=== PATIENT | female | born 1950 | race Caucasian/White ===

== ENCOUNTER 2016-07-09 14:39 | Emergency (ER) | payer MEDICAID ==
[~2016-07-09] VITALS: Ht 157.4 cm; Wt 81.6 kg
[~2016-07-09 14:39] MED LIST changes: -ATORVASTATIN CA40 M1 PO; -AVPAK AZITHROM250 M1 PO; -CYCLOBENZAPRINE10 MG PO; -PREDNISONE10 MG PO
[2016-07-09] MEDS ORDERED: ATORVASTATIN CA40 M1 PO (14:49)
[2016-07-09 15:29] LABS: BASO % 0.3 % (0.0-1.0); EOS # 0.4 10*3/uL (0.0-0.4); EOS % 5.4 % (1.0-4.0); HEMATOCRIT 41.9 % (37.0-47.0); HEMOGLOBIN 13.8 g/dl (12.0-16.0); LYMPH # 2.1 10*3/uL (1.3-4.4); LYMPH % 28.6 % (27.0-41.0); MEAN CELL VOLUME 93.3 fl (81.0-99.0); MEAN CORPUSCULAR HGB 30.7 pg (27.0-31.0); MEAN CORPUSCULAR HGB CONC 32.9 g/dl (33.0-37.0); MEAN PLATELET VOLUME 10.9 fl (9.6-12.3); MONO # 0.4 10*3/uL (0.1-1.0); MONO % 5.4 % (3.0-9.0); NEUT # 4.3 10*3/uL (2.3-7.9); PLATELET COUNT AUTOMATED 181 10*3/uL (130-400); RED BLOOD COUNT 4.49 10*6/uL (4.10-5.10); WHITE BLOOD COUNT 7.2 10*3/uL (4.8-10.8)
[2016-07-09 15:46] LABS: ALKALINE PHOSPHATASE 84 U/L (45-117); BILIRUBIN, TOTAL 0.4 mg/dl (0.2-1.0); BUN 12 mg/dl (7-24); CARBON DIOXIDE 28 mmol/L (21-32); CHLORIDE 102 mmol/L (98-107); EST GLOM FILT AFRICAN AMERICAN > 60 ml/min; GLUCOSE 90 mg/dL (65-99); SGOT/AST 20 IU/L (3-35); SGPT/ALT 24 U/L (12-78); SODIUM 139 mmol/L (136-145); TOTAL PROTEIN 7.4 gm/dL (6.4-8.2)
[2016-07-09 16:16] VITALS: BP 122/65
[2016-07-09] MEDS ORDERED: AVPAK AZITHROM250 M1 PO (16:33)
[2016-07-09] MEDS ORDERED: PREDNISONE10 MG PO (16:33)
[2016-07-09] MEDS ORDERED: CYCLOBENZAPRINE10 MG PO (16:33)
== END 2016-07-09 16:40 | disposition home or self-care (01) ==
LOC: ED 14:39
PROVIDERS: Registered Nurse
DX: S22.9XXA Fracture of bony thorax, part unspecified, initial encounter for closed fracture (principal); J20.9 Acute bronchitis, unspecified; J45.909 Unspecified asthma, uncomplicated; Z88.0 Allergy status to penicillin; Z79.899 Other long term (current) drug therapy; X58.XXXA Exposure to other specified factors, initial encounter; Y93.9 Activity, unspecified; Y92.9 Unspecified place or not applicable; Y99.9 Unspecified external cause status

== ENCOUNTER → 2016-07-09 | Outpatient (CLI) | payer MEDICAID ==
[~2016-07-09] MED LIST: ATORVASTATIN CA40 M1 PO; AVPAK AZITHROM250 M1 PO; CYCLOBENZAPRINE10 MG PO; FLEXERIL10 MG PO; LEVOFLOXACIN500 MG PO; LISINOPRIL/HCTZ1 TA3 PO; LISINOPRIL/HCTZ1 TAB PO; MELOXICAM15 MG PO; MOTRIN800 MG PO; PREDNICOT20 MG PO; PREDNISONE10 MG PO; PREDNISONE20 M1 PO; PROZAC20 MG PO; ROBITUSSIN AC 110 ML PO; SEPTRA DS 800 M1 TAB PO; TRAMADOL HCL50 MG PO; VENTOLIN H0.09 MG/AC INH; VICODIN 5/500 505 MG PO; VICODIN ES 7501 TAB PO; ZITHROMAX Z PA250 MG PO
== END | disposition home or self-care (01) ==
LOC: MAMMO 02:19
DX: Z12.31 Encounter for screening mammogram for malignant neoplasm of breast (principal)

== ENCOUNTER 2016-11-01 05:53 | Inpatient (IN) | payer MEDICAID ==
[2016-11-01] VITALS (10 sets, daily range): BP systolic 105–182; BP diastolic 6–90
[~2016-11-01] VITALS: Ht 160 cm; Wt 85.5 kg
--- NOTE | ~2016-11-01 | EKG ---
[place], [place] ELECTROCARDIOGRAM REPORT NAME: CHRIS VELASQUEZ UNIT #: [id number] ROOM: 403 DOCTOR: AUSTIN HANSEN MD BIRTHDATE: [birth year] DOS: 11/01/2016 TIME: 0609 FINDINGS: 1. Sinus tachycardia. 2. Otherwise, normal. AUSTIN HANSEN MD CM:EKGRPT:ELECTROCARDIOGRAM REPORT [id number] AUSTIN HANSEN MD
[~2016-11-01 05:53] MED LIST changes: +ATORVASTATIN CA40 M1 PO; +AVPAK AZITHROM250 M1 PO; +CYCLOBENZAPRINE10 MG PO; +PREDNISONE10 MG PO
[2016-11-01] MEDS ORDERED: VITAMIN D-32000 UNI1 PO (06:04)
[2016-11-01] MEDS ORDERED: LIPITOR40 MG PO (06:05)
[2016-11-01 06:32] LABS: BASO % 0.3 % (0.0-1.0); EOS # 0.5 10*3/uL (0.0-0.4); EOS % 6.1 % (1.0-4.0); HEMATOCRIT 42.7 % (37.0-47.0); HEMOGLOBIN 14.4 g/dl (12.0-16.0); LYMPH # 1.2 10*3/uL (1.3-4.4); LYMPH % 13.5 % (27.0-41.0); MEAN CELL VOLUME 92.2 fl (81.0-99.0); MEAN CORPUSCULAR HGB 31.1 pg (27.0-31.0); MEAN CORPUSCULAR HGB CONC 33.7 g/dl (33.0-37.0); MEAN PLATELET VOLUME 10.8 fl (9.6-12.3); MONO # 0.4 10*3/uL (0.1-1.0); MONO % 4.9 % (3.0-9.0); NEUT # 6.7 10*3/uL (2.3-7.9); NEUT % 74.9 % (47.0-73.0); PLATELET COUNT AUTOMATED 179 10*3/uL (130-400); RED BLOOD COUNT 4.63 10*6/uL (4.10-5.10); RED CELL DISTRI WIDTH 12.8 % (0-14.5); WHITE BLOOD COUNT 8.9 10*3/uL (4.8-10.8)
[2016-11-01 06:50] LABS: ALBUMIN 4.1 gm/dl (3.1-4.5); ALKALINE PHOSPHATASE 93 U/L (45-117); BILIRUBIN, TOTAL 0.5 mg/dl (0.2-1.0); BUN 8 mg/dl (7-24); CARBON DIOXIDE 27 mmol/L (21-32); CHLORIDE 106 mmol/L (98-107); EST GLOM FILT AFRICAN AMERICAN > 60 ml/min; GLUCOSE 106 mg/dL (65-99); POTASSIUM 3.5 mmol/L (3.5-5.1); SGOT/AST 17 IU/L (3-35); SGPT/ALT 22 U/L (12-78); SODIUM 141 mmol/L (136-145); TOTAL PROTEIN 7.5 gm/dL (6.4-8.2)
[2016-11-01 06:53] LABS: TROPONIN I < 0.015 ng/ml (<0.045)
[2016-11-01 08:28] LABS: LA>2 REFLEX 2 HR DRAW NOW
[2016-11-01 09:04] LABS: LA>2 RFLX FOLLOW UP AT 2 HRS 4.1 mmol/L (0.4-2.0)
[2016-11-01 10:42] LABS: LA>2 REFLEX 4 HR DRAW NOW
[2016-11-01 15:52] LABS: LA>2 REFLEX 2 HR DRAW NOW
[2016-11-01 16:22] LABS: LA>2 RFLX FOLLOW UP AT 2 HRS 4.7 mmol/L (0.4-2.0)
[2016-11-01 18:08] LABS: LA>2 REFLEX 4 HR DRAW NOW
[2016-11-02] VITALS: BP 117/64
[2016-11-02 06:58] LABS: BASO % 0.1 % (0.0-1.0); IG # 0.1 10*3/uL (0.0-0.1); LYMPH # 0.7 10*3/uL (1.3-4.4); LYMPH % 6.5 % (27.0-41.0); MEAN CELL VOLUME 94.8 fl (81.0-99.0); MEAN CORPUSCULAR HGB CONC 32.7 g/dl (33.0-37.0); MONO # 0.4 10*3/uL (0.1-1.0); MONO % 3.8 % (3.0-9.0); NEUT # 9.2 10*3/uL (2.3-7.9); NEUT % 89.1 % (47.0-73.0); PLATELET COUNT AUTOMATED 170 10*3/uL (130-400); RED BLOOD COUNT 3.81 10*6/uL (4.10-5.10); RED CELL DISTRI WIDTH 13.1 % (0-14.5); WHITE BLOOD COUNT 10.3 10*3/uL (4.8-10.8)
[2016-11-02 06:59] LABS: HEMATOCRIT 36.1 % (37.0-47.0); HEMOGLOBIN 11.8 g/dl (12.0-16.0)
[2016-11-02 07:28] LABS: BUN 9 mg/dl (7-24); CARBON DIOXIDE 24 mmol/L (21-32); CHLORIDE 111 mmol/L (98-107); CHOLESTEROL 166 mg/dL (<200); EST GLOM FILT AFRICAN AMERICAN > 60 ml/min; GLUCOSE 164 mg/dL (65-99); HDL CHOLESTEROL 88 mg/dl (40-60); LDL CHOLESTEROL 63 mg/dL (9-159); MAGNESIUM 2.3 mg/dL (1.5-2.1); PHOSPHOROUS 1.9 mg/dL (2.5-4.9); POTASSIUM 4.2 mmol/L (3.5-5.1); SODIUM 144 mmol/L (136-145); TRIGLYCERIDES 73 mg/dl (<150); VLDL CHOLESTEROL 15 mg/dL (6-40)
[2016-11-02 07:35] LABS: THYROID STIM HORMONE (HS) 0.598 uIU/ml (0.358-4.75)
[2016-11-02 07:56] LABS: HEMOGLOBIN A1c 5.8 % (4.8-5.6)
[2016-11-02 08:00] VITALS: BP 113/69
[2016-11-02 08:43] LABS: FOLIC ACID 13.57 ng/mL (>5.38); VITAMIN D, 25-HYDROXY 37.4 ng/mL (30-100)
[2016-11-02 12:00] VITALS: BP 142/78
[2016-11-02 16:00] VITALS: BP 134/82
[2016-11-02 20:00] VITALS: BP 130/69
[2016-11-03] VITALS: BP 127/65
[2016-11-03 06:25] LABS: BASO % 0.1 % (0.0-1.0); HEMATOCRIT 35.9 % (37.0-47.0); HEMOGLOBIN 11.7 g/dl (12.0-16.0); IG # 0.1 10*3/uL (0.0-0.1); LYMPH # 0.6 10*3/uL (1.3-4.4); LYMPH % 6.2 % (27.0-41.0); MEAN CELL VOLUME 95.7 fl (81.0-99.0); MEAN CORPUSCULAR HGB 31.2 pg (27.0-31.0); MEAN CORPUSCULAR HGB CONC 32.6 g/dl (33.0-37.0); MEAN PLATELET VOLUME 11.4 fl (9.6-12.3); MONO # 0.4 10*3/uL (0.1-1.0); NEUT # 9.1 10*3/uL (2.3-7.9); NEUT % 88.7 % (47.0-73.0); PLATELET COUNT AUTOMATED 178 10*3/uL (130-400); RED BLOOD COUNT 3.75 10*6/uL (4.10-5.10); RED CELL DISTRI WIDTH 13.2 % (0-14.5); WHITE BLOOD COUNT 10.2 10*3/uL (4.8-10.8)
[2016-11-03 06:53] LABS: BUN 15 mg/dl (7-24); CARBON DIOXIDE 24 mmol/L (21-32); CHLORIDE 111 mmol/L (98-107); EST GLOM FILT AFRICAN AMERICAN > 60 ml/min; GLUCOSE 160 mg/dL (65-99); POTASSIUM 3.8 mmol/L (3.5-5.1); SODIUM 142 mmol/L (136-145)
[2016-11-03 08:00] VITALS: BP 130/85
[2016-11-03 12:00] VITALS: BP 140/88
[2016-11-03 16:00] VITALS: BP 130/80
[2016-11-03 20:00] VITALS: BP 127/80
[2016-11-04] VITALS: BP 137/83
[2016-11-04 06:10] LABS: BASO % 0.1 % (0.0-1.0); HEMOGLOBIN 11.4 g/dl (12.0-16.0); IG # 0.2 10*3/uL (0.0-0.1); LYMPH # 0.8 10*3/uL (1.3-4.4); LYMPH % 7.5 % (27.0-41.0); MEAN CELL VOLUME 96.3 fl (81.0-99.0); MEAN CORPUSCULAR HGB 30.5 pg (27.0-31.0); MEAN CORPUSCULAR HGB CONC 31.7 g/dl (33.0-37.0); MEAN PLATELET VOLUME 11.5 fl (9.6-12.3); MONO # 0.6 10*3/uL (0.1-1.0); MONO % 6.4 % (3.0-9.0); NEUT # 8.4 10*3/uL (2.3-7.9); NEUT % 84.4 % (47.0-73.0); PLATELET COUNT AUTOMATED 190 10*3/uL (130-400); RED BLOOD COUNT 3.74 10*6/uL (4.10-5.10); RED CELL DISTRI WIDTH 13.2 % (0-14.5)
[2016-11-04 06:42] LABS: BUN 16 mg/dl (7-24); CARBON DIOXIDE 27 mmol/L (21-32); CHLORIDE 107 mmol/L (98-107); GLUCOSE 156 mg/dL (65-99); POTASSIUM 3.8 mmol/L (3.5-5.1); SODIUM 141 mmol/L (136-145)
[2016-11-04 06:45] LABS: EST GLOM FILT AFRICAN AMERICAN > 60 ml/min
[2016-11-04 08:00] VITALS: BP 138/89
[2016-11-04 12:00] VITALS: BP 156/89
[2016-11-04] MEDS ORDERED: DUONEB 3 MG/3 ML3 M1 INH (14:19)
[2016-11-04] MEDS ORDERED: NEBULIZER NEB (14:19)
[2016-11-04 16:00] VITALS: BP 131/86
[2016-11-04 20:00] VITALS: BP 122/83
[2016-11-05] VITALS: BP 118/64
[2016-11-05 06:34] LABS: HEMATOCRIT 40.8 % (37.0-47.0); HEMOGLOBIN 13.2 g/dl (12.0-16.0); MEAN CELL VOLUME 96.5 fl (81.0-99.0); MEAN CORPUSCULAR HGB 31.2 pg (27.0-31.0); MEAN CORPUSCULAR HGB CONC 32.4 g/dl (33.0-37.0); MEAN PLATELET VOLUME 10.7 fl (9.6-12.3); NUCLEATED RED BLOOD CELL 0.2 % (0.0-0.0); PLATELET COUNT AUTOMATED 203 10*3/uL (130-400); RED BLOOD COUNT 4.23 10*6/uL (4.10-5.10); RED CELL DISTRI WIDTH 13.3 % (0-14.5); WHITE BLOOD COUNT 8.4 10*3/uL (4.8-10.8)
[2016-11-05 06:43] LABS: BUN 16 mg/dl (7-24); CARBON DIOXIDE 31 mmol/L (21-32); CHLORIDE 105 mmol/L (98-107); EST GLOM FILT AFRICAN AMERICAN > 60 ml/min; GLUCOSE 107 mg/dL (65-99); POTASSIUM 4.1 mmol/L (3.5-5.1); SODIUM 144 mmol/L (136-145)
[2016-11-05 07:04] LABS: EOSINOPHIL # 0.1 10*3/uL (0-0.4); EOSINOPHILS 1 % (1-4); LYMPHOCYTE # 1.6 10*3/uL (1.3-4.4); METAMYELOCYTES 2 % (0-0); MONOCYTE # 0.5 10*3/uL (0.1-1.0); NEUTROPHILS 72 % (47-73); TOTAL CELLS COUNTED 100 #CELLS
[2016-11-05 07:05] LABS: PLATELET SUFFICIENCY NORMAL (NORMAL)
[2016-11-05 08:00] VITALS: BP 144/90
[2016-11-05 12:00] VITALS: BP 136/86
[2016-11-05 15:27] LABS: BILIRUBIN NEGATIVE (NEGATIVE); BLOOD NEGATIVE (NEGATIVE); CLARITY CLEAR (CLEAR); COLOR YELLOW (YELLOW); GLUCOSE NEGATIVE (NEGATIVE); KETONE NEGATIVE (NEGATIVE); LEUKO ESTERASE NEGATIVE (NEGATIVE); NITRITE NEGATIVE (NEGATIVE); PROTEIN NEGATIVE (NEGATIVE); SPECIFIC GRAVITY <= 1.005 (1.005-1.030); UROBILINOGEN 0.2 E.U./dl (0.2-1.0)
[2016-11-05 15:49] LABS: BACTERIA TRACE
[2016-11-05 15:50] LABS: RBC 0-2 rbc/hpf (0-2)
[2016-11-05 15:56] LABS: URINE REFLEX COMMENT NO (NO)
[2016-11-05 16:00] VITALS: BP 122/84
[2016-11-05 20:00] VITALS: BP 128/80
[2016-11-06 00:32] VITALS: BP 130/82
[2016-11-06 08:00] VITALS: BP 126/82
[2016-11-06 12:00] VITALS: BP 134/80
[2016-11-06 16:00] VITALS: BP 117/81
[2016-11-06 20:00] VITALS: BP 127/67
[2016-11-06 23:58] VITALS: BP 118/63
[2016-11-07 08:00] VITALS: BP 137/87
[2016-11-07 12:00] VITALS: BP 114/82
[2016-11-07] MEDS ORDERED: PREDNISONE10 MG PO (14:28)
[2016-11-07] MEDS ORDERED: MUCINEX ER600 MG PO ×2 (14:28→15:21)
[2016-11-07] MEDS ORDERED: LEVAQUIN500 M2 PO (14:28)
[2016-11-07] MEDS ORDERED: ROBITUSSIN5 ML PO (14:28)
== END 2016-11-07 15:56 | disposition home or self-care (01) | DRG 871 ==
LOC: ED 05:53 → EDHOLD 07:53 → 4E 07:53
PROVIDERS: Emergency Medicine; Hospitalist; Internal Medicine; Internal Medicine Hospice and Palliative Medicine
DX: A41.9 Sepsis, unspecified organism (principal); J96.00 Acute respiratory failure, unspecified whether with hypoxia or hypercapnia; E87.2 Acidosis; J45.901 Unspecified asthma with (acute) exacerbation; J18.9 Pneumonia, unspecified organism; E83.41 Hypermagnesemia; E83.39 Other disorders of phosphorus metabolism; E83.51 Hypocalcemia; R65.20 Severe sepsis without septic shock; J40 Bronchitis, not specified as acute or chronic; R73.9 Hyperglycemia, unspecified; J30.2 Other seasonal allergic rhinitis; I10 Essential (primary) hypertension; E78.00 Pure hypercholesterolemia, unspecified; M19.90 Unspecified osteoarthritis, unspecified site; E55.9 Vitamin D deficiency, unspecified; E66.9 Obesity, unspecified; Z68.33 Body mass index [BMI] 33.0-33.9, adult; Z88.0 Allergy status to penicillin; D64.9 Anemia, unspecified

== ENCOUNTER → 2016-12-05 | Outpatient (CLI) | payer MEDICAID ==
[~2016-12-05] MED LIST changes: +DUONEB 3 MG/3 ML3 M1 INH; +LEVAQUIN500 M2 PO; +LIPITOR40 MG PO; +MUCINEX ER600 MG PO; +NEBULIZER NEB; +ROBITUSSIN5 ML PO; +VITAMIN D-32000 UNI1 PO
--- NOTE | ~2016-12-05 | PF ---
[place], [place] PULMONARY FUNCTION TEST NAME: [facility]ASQUEZ [id number] UNIT #: [id number] ROOM: DOCTOR: PRIYANKA WORTHY MD,SALAZAR BIRTHDATE: [birth year] DOS: 12/05/2016 ORDERED BY: Dr. Jourdan Nelson. HISTORY: The patient recorded as 66-year-old female, height of 64 inches, weight of 194 pounds with BMI of 33.3. The patient was reported with diagnosis of bronchial asthma, active symptoms of dyspnea with exertion and rare wheezing. There was no past tobacco use. SPIROMETRY: The FVC was recorded 1.76 liters at 55% predicted value, moderately decreased to 34%, improvement occurred post-bronchodilator test. The FEV1 was noted 1.39 liters at 57% predicted value, mildly decreased to 29%, improvement occurred post-bronchodilator testing. Ratio of FEV1/FVC was noted at 79%. Flow volume loop was suggestive of reversible obstructive airway pattern. LUNG VOLUMES: Thoracic gas volume recorded 76%, residual volume 91%, total lung capacity 86%. Lung volumes were noted normal. The patient's lung diffusion noted normal at 82%. The patient's airway resistance, passive conductance noted partially normal with improvement occurred post-bronchodilator test. IMPRESSION: The tests were noted as finding of reversible obstructive lung disease and bronchial asthma. SALAZAR MATHEW MD CM:PFREPORT:PULMONARY FUNCTION TEST [id number] SALAZAR WORTHY MD
== END | disposition home or self-care (01) ==
LOC: CP 08:29
DX: J45.909 Unspecified asthma, uncomplicated (principal); J44.9 Chronic obstructive pulmonary disease, unspecified

== ENCOUNTER → 2017-06-04 | Outpatient (CLI) | payer MEDICARE, MEDICAID | END | disposition home or self-care (01) | LOC: US 12:36 | DX: N95.0 Postmenopausal bleeding (principal) ==

== ENCOUNTER 2017-08-06 09:55 | Emergency (ER) | payer MEDICARE, MEDICAID ==
[~2017-08-06] VITALS: Wt 88.0 kg
[2017-08-06 10:02] VITALS: BP 136/79
[2017-08-06 10:32] LABS: BASO % 0.4 % (0.0-1.0); EOS # 0.1 10*3/uL (0.0-0.4); HEMATOCRIT 42.5 % (37.0-47.0); HEMOGLOBIN 14.1 g/dl (12.0-16.0); LYMPH # 1.2 10*3/uL (1.3-4.4); LYMPH % 22.6 % (27.0-41.0); MEAN CELL VOLUME 91.2 fl (81.0-99.0); MEAN CORPUSCULAR HGB 30.3 pg (27.0-31.0); MEAN CORPUSCULAR HGB CONC 33.2 g/dl (33.0-37.0); MONO # 0.4 10*3/uL (0.1-1.0); MONO % 6.9 % (3.0-9.0); NEUT # 3.5 10*3/uL (2.3-7.9); NEUT % 67.9 % (47.0-73.0); PLATELET COUNT AUTOMATED 192 10*3/uL (130-400); RED BLOOD COUNT 4.66 10*6/uL (4.10-5.10); RED CELL DISTRI WIDTH 13.5 % (0-14.5); WHITE BLOOD COUNT 5.1 10*3/uL (4.8-10.8)
[2017-08-06 10:50] LABS: BUN 13 mg/dl (7-24); CHLORIDE 102 mmol/L (98-107); POTASSIUM 3.8 mmol/L (3.5-5.1); SGOT/AST 29 IU/L (3-35); SODIUM 137 mmol/L (136-145); TOTAL PROTEIN 7.7 gm/dL (6.4-8.2)
[2017-08-06 10:53] LABS: ALKALINE PHOSPHATASE 97 U/L (45-117); SGPT/ALT 32 U/L (12-78); TROPONIN I < 0.015 ng/ml (<0.045)
[2017-08-06] MEDS ORDERED: DELTASONE20 M1 PO (11:45)
[2017-08-06] MEDS ORDERED: VIBRAMYCIN100 MG PO (11:45)
[2017-08-06] MEDS ORDERED: HYCODAN/HYDROMET5 ML PO (11:46)
== END 2017-08-06 12:01 | disposition home or self-care (01) ==
LOC: ED 09:55
PROVIDERS: Physician Assistant
DX: J40 Bronchitis, not specified as acute or chronic (principal); J01.10 Acute frontal sinusitis, unspecified; J44.9 Chronic obstructive pulmonary disease, unspecified; Z88.0 Allergy status to penicillin; Z79.899 Other long term (current) drug therapy

== ENCOUNTER → 2017-09-15 | Outpatient (CLI) | payer MEDICARE, MEDICAID ==
[~2017-09-15] MED LIST changes: +DELTASONE20 M1 PO; +HYCODAN/HYDROMET5 ML PO; +VIBRAMYCIN100 MG PO
== END | disposition home or self-care (01) ==
LOC: US 13:00
DX: N95.0 Postmenopausal bleeding (principal)

== ENCOUNTER → 2017-09-25 | Outpatient (CLI) | payer MEDICARE, MEDICAID | END | disposition home or self-care (01) | LOC: MAMMO 01:26 | DX: Z12.31 Encounter for screening mammogram for malignant neoplasm of breast (principal) ==

== ENCOUNTER → 2018-11-19 | Outpatient (CLI) | payer OTHER, MEDICAID ==
[~2018-11-19] MED LIST changes: +MEDROL DOSEPAK4 MG PO; +NAPROSYN500 MG PO
== END | disposition home or self-care (01) ==
LOC: US 13:00
DX: M25.461 Effusion, right knee (principal); M79.89 Other specified soft tissue disorders; M79.609 Pain in unspecified limb

== ENCOUNTER → 2019-06-09 | Outpatient (CLI) | payer OTHER, MEDICAID | END | disposition home or self-care (01) | LOC: RAD 07:54 → MAMMO 08:30 | DX: Z12.31 Encounter for screening mammogram for malignant neoplasm of breast (principal); R93.7 Abnormal findings on diagnostic imaging of other parts of musculoskeletal system; M18.0 Bilateral primary osteoarthritis of first carpometacarpal joints; Z78.0 Asymptomatic menopausal state ==

== ENCOUNTER → 2021-04-03 | Outpatient (CLI) | payer OTHER, MEDICAID | END | disposition home or self-care (01) | LOC: MAMMO 03-15 13:30 | PROVIDERS: ATTEND Internal Medicine | DX: Z12.31 Encounter for screening mammogram for malignant neoplasm of breast (principal) ==

== ENCOUNTER → 2021-10-21 | Outpatient (CLI) | payer OTHER, MEDICAID | END | disposition home or self-care (01) | LOC: LAB 11:06 | PROVIDERS: ATTEND Specialist | DX: J30.9 Allergic rhinitis, unspecified (principal) ==

== ENCOUNTER 2022-11-13 16:56 | Emergency (ER) | payer OTHER, MEDICAID ==
[~2022-11-13] VITALS: Ht 160 cm; Wt 72.1 kg
[2022-11-13 17:16] VITALS: BP 163/80
[2022-11-13] MEDS ORDERED: VIBRAMYCIN100 MG PO ×2 (17:56→18:44)
[2022-11-13] MEDS ORDERED: METRONIDAZOLE500 M1 PO ×2 (17:56→18:44)
== END 2022-11-13 18:41 | disposition home or self-care (01) ==
LOC: ED 16:56
DX: S51.832A Puncture wound without foreign body of left forearm, initial encounter (principal); J44.9 Chronic obstructive pulmonary disease, unspecified; Z88.0 Allergy status to penicillin; Z90.89 Acquired absence of other organs; Z98.51 Tubal ligation status; Z98.890 Other specified postprocedural states; Z96.653 Presence of artificial knee joint, bilateral; W55.03XA Scratched by cat, initial encounter; Y93.89 Activity, other specified; Y92.009 Unspecified place in unspecified non-institutional (private) residence as the place of occurrence of the external cause; Y99.8 Other external cause status

== ENCOUNTER 2022-11-16 10:38 | Emergency (ER) | payer OTHER, MEDICAID ==
[~2022-11-16] VITALS: Ht 160 cm; Wt 75.7 kg
[~2022-11-16 10:38] MED LIST changes: +METRONIDAZOLE500 M1 PO
[2022-11-16 10:52] VITALS: BP 151/88
[2022-11-16] MEDS ORDERED: ALENDRONATE SOD70 M1 PO (10:56)
[2022-11-16] MEDS ORDERED: OMEPRAZOLE40 MG PO (10:56)
[2022-11-16] MEDS ORDERED: HYDROCHLOROTH12.5 M3 PO (10:57)
[2022-11-16] MEDS ORDERED: MONTELUKAST SOD10 MG PO (10:57)
== END 2022-11-16 11:11 | disposition home or self-care (01) ==
LOC: ED 10:38
DX: S51.852D Open bite of left forearm, subsequent encounter (principal); J44.9 Chronic obstructive pulmonary disease, unspecified; Z88.0 Allergy status to penicillin; Z90.89 Acquired absence of other organs; Z96.653 Presence of artificial knee joint, bilateral; Z98.51 Tubal ligation status; Z98.890 Other specified postprocedural states; W55.01XD Bitten by cat, subsequent encounter

== ENCOUNTER 2022-11-20 11:20 | Emergency (ER) | payer OTHER, MEDICAID ==
[~2022-11-20] VITALS: Wt 72.1 kg
[~2022-11-20 11:20] MED LIST changes: +ALENDRONATE SOD70 M1 PO; +HYDROCHLOROTH12.5 M3 PO; +MONTELUKAST SOD10 MG PO; +OMEPRAZOLE40 MG PO
[2022-11-20 11:31] VITALS: BP 164/85
== END 2022-11-20 13:15 | disposition home or self-care (01) ==
LOC: ED 11:20
DX: S50.872D Other superficial bite of left forearm, subsequent encounter (principal); Z20.3 Contact with and (suspected) exposure to rabies; J45.909 Unspecified asthma, uncomplicated; Z88.0 Allergy status to penicillin; Z79.2 Long term (current) use of antibiotics; Z79.899 Other long term (current) drug therapy; Z96.653 Presence of artificial knee joint, bilateral; Z90.89 Acquired absence of other organs; W55.01XD Bitten by cat, subsequent encounter

== ENCOUNTER 2022-11-27 07:01 | Emergency (ER) | payer OTHER, MEDICAID ==
[~2022-11-27] VITALS: Wt 71.7 kg
[2022-11-27 07:21] VITALS: BP 152/77
== END 2022-11-27 07:50 | disposition home or self-care (01) ==
LOC: ED 07:01
DX: S51.852D Open bite of left forearm, subsequent encounter (principal); Z20.3 Contact with and (suspected) exposure to rabies; J45.909 Unspecified asthma, uncomplicated; Z88.0 Allergy status to penicillin; Z79.899 Other long term (current) drug therapy; Z79.2 Long term (current) use of antibiotics; Z96.653 Presence of artificial knee joint, bilateral; Z90.89 Acquired absence of other organs; W55.01XD Bitten by cat, subsequent encounter

== ENCOUNTER → 2023-03-03 | Outpatient (CLI) | payer OTHER | END | disposition home or self-care (01) | LOC: RAD 11:37 | PROVIDERS: ATTEND Specialist | DX: J06.9 Acute upper respiratory infection, unspecified (principal); J43.9 Emphysema, unspecified ==

== ENCOUNTER 2023-08-04 11:13 | Emergency (ER) | payer OTHER, MEDICAID ==
[~2023-08-04] VITALS: Ht 165.1 cm; Wt 68.0 kg
[2023-08-04 12:04] VITALS: BP 133/75
[2023-08-04] MEDS ORDERED: CEPHALEXIN500 M1 PO (12:45)
[2023-08-04] MEDS ORDERED: CEPHALEXIN 500 MG CAP PO ONE (12:45)
[2023-08-04] MEDS ORDERED: IBUPROFEN 600 MG TAB PO ONE (12:50)
[2023-08-04] MEDS ORDERED: ACETAMINOPHEN 325 MG TAB PO ONE (12:50)
== END 2023-08-04 13:22 | disposition home or self-care (01) ==
LOC: ED 11:13
DX: L03.114 Cellulitis of left upper limb (principal); M19.90 Unspecified osteoarthritis, unspecified site; J45.909 Unspecified asthma, uncomplicated; I10 Essential (primary) hypertension; E78.00 Pure hypercholesterolemia, unspecified; R73.9 Hyperglycemia, unspecified; E83.41 Hypermagnesemia; D64.9 Anemia, unspecified; J44.9 Chronic obstructive pulmonary disease, unspecified; Z88.0 Allergy status to penicillin; Z98.51 Tubal ligation status; Z90.49 Acquired absence of other specified parts of digestive tract; Z96.653 Presence of artificial knee joint, bilateral; Z98.890 Other specified postprocedural states

== ENCOUNTER → 2024-10-15 | Outpatient (CLI) | payer OTHER ==
[~2024-10-15] MED LIST changes: +CEPHALEXIN500 M1 PO
== END | disposition home or self-care (01) ==
LOC: RAD 13:52
PROVIDERS: ATTEND Nurse Practitioner Family
DX: M85.88 Other specified disorders of bone density and structure, other site (principal); Z78.0 Asymptomatic menopausal state

== ENCOUNTER → 2025-01-10 | Outpatient (CLI) | payer OTHER | END | disposition home or self-care (01) | LOC: MAMMO 10:54 | PROVIDERS: ATTEND Nurse Practitioner Family | DX: Z12.31 Encounter for screening mammogram for malignant neoplasm of breast (principal); N63.11 Unspecified lump in the right breast, upper outer quadrant; R92.323 Mammographic fibroglandular density, bilateral breasts; I49.8 Other specified cardiac arrhythmias; R00.0 Tachycardia, unspecified ==

== ENCOUNTER → 2025-03-21 | Outpatient (CLI) | payer OTHER | END | disposition home or self-care (01) | LOC: CARD 10:30 | PROVIDERS: ATTEND Internal Medicine Cardiovascular Disease | DX: I35.1 Nonrheumatic aortic (valve) insufficiency (principal); I49.3 Ventricular premature depolarization; I49.9 Cardiac arrhythmia, unspecified ==